=== PATIENT | female | born 1995 | race Hispanic/Latino ===

== ENCOUNTER 2017-01-07 12:34 | Emergency (ER) | payer OTHER ==
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
[2017-01-07] MEDS ORDERED: Adacel (T-DAP) 0.5 ML VIAL ONE (14:20)
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
[2017-01-07] MEDS ORDERED: HYDROcodone/Acetaminophen 5/325 mg Tablet ONE (15:09)
== END 2017-01-07 16:27 | disposition home or self-care (01) ==
LOC: ERS 12:34
DX: S76.012A Strain of muscle, fascia and tendon of left hip, initial encounter (principal); S20.211A Contusion of right front wall of thorax, initial encounter; S00.03XA Contusion of scalp, initial encounter; S70.312A Abrasion, left thigh, initial encounter; S70.311A Abrasion, right thigh, initial encounter; V89.2XXA Person injured in unspecified motor-vehicle accident, traffic, initial encounter
CPT/HCPCS: 70450; 72125; 72170; 90471; 90715

== ENCOUNTER 2017-07-03 11:14 | Inpatient (IN) | payer OTHER ==
[2017-07-03 14:26] LABS: #Monocytes 0.3 thou/uL (0.11-0.59); #Neutrophils 7.4 thou/uL (1.40-6.50); %Eosinophils 0.4 % (0.0-10.0); %Lymphocytes 11.9 % (21.0-51.0); %Monocytes 2.9 % (0.0-10.0); %Neutrophils 84.7 % (42.0-75.0); Hemoglobin 10.9 g/dL (12.0-16.0); Mean Corpuscular HGB CONC 33.4 g/dL (32.0-36.0); Mean Corpuscular Hemoglobin 28.7 pg (27.0-31.0); Mean Corpuscular Volume 85.8 fl (81.0-99.0); Platelet Count 314 thou/uL (130-400); Red Blood Cell (RBC) Count 3.81 mill/uL (4.20-5.40); White Blood Cell (WBC) Count 8.7 thou/uL (4.8-10.8)
[2017-07-03 14:35] LABS: BHCG - Serum Negative (NEGATIVE); Pregs Control Background? CLEAR/WHITE (CLR/WHITE); Pregs Control Bar Appear? YES (CONTROL BAR)
[2017-07-03 14:48] LABS: ALT (SGPT) Less than 7 U/L (8-55); AST (SGOT) 9 U/L (5-34); Albumin 4.1 g/dL (3.5-5.0); Alkaline Phosphatase 87 U/L (40-150); Anion Gap 11 mmol/L (10-20); BUN (Urea Nitrogen) 11 mg/dL (7.0-18.7); Bilirubin, Total 0.5 mg/dL (0.2-1.2); CK (CPK) 35 U/L (29-168); CRP (Inflammatory) 5.63 mg/dL (= or < 0.5); Calc. Creatinine Clearance 0 mL/min (70-130); Calcium 9.4 mg/dL (7.8-10.44); Carbon Dioxide 24 mmol/L (22-29); Chloride 105 mmol/L (98-107); Estimated GFR-MDRD Greater than 90; Globulin 2.9 g/dL (2.4-3.5); Glucose 95 mg/dL (70-105); Potassium 3.8 mmol/L (3.5-5.1); Sodium 136 mmol/L (136-145)
[2017-07-03] MEDS ORDERED: diphenhydrAMINE 50 MG/ML VIAL ONE (15:25)
[2017-07-03] MEDS ORDERED: Ampicillin/Sulbactam 3 GM in Sodium Chloride 0.9% 100 ML IVPB SCH (15:45)
[2017-07-03] MEDS ORDERED: Ketorolac Tromethamine 30 MG/ML VIAL ONE (16:53)
[2017-07-03] MEDS ORDERED: Ondansetron PF 4 MG/2 ML Vial ONE (16:53)
[2017-07-03] MEDS ORDERED: PROPOFOL 200 MG/20 ML VIAL ONE (16:53)
[2017-07-03] MEDS ORDERED: Dexamethasone 20 MG/5 ML VIAL ONE (16:53)
[2017-07-03] MEDS ORDERED: Lidocaine 1% PF 5 ML VIAL ONE (16:53)
[2017-07-03] MEDS ORDERED: Midazolam HCl 2 mg/2 ml Vial ONE (19:54)
[2017-07-03] MEDS ORDERED: Bisacodyl 10 MG SUPP PR PRN (20:00)
[2017-07-03] MEDS ORDERED: Promethazine HCl 25 MG/ML VIAL IM PRN ×2 (20:00→21:12)
[2017-07-03] MEDS ORDERED: Acetaminophen 325 MG TAB PO PRN (20:00)
[2017-07-03] MEDS ORDERED: TETANUS AND DIPHTHERIA TOX/PF 0.5 ML DISP.SYRIN IM SCH (20:00)
[2017-07-03] MEDS ORDERED: HYDROcodone/Acetaminophen 10/325 mg Tablet PO PRN (20:00)
[2017-07-03] MEDS ORDERED: Ondansetron PF 4 MG/2 ML Vial IV PRN (20:00)
[2017-07-03] MEDS ORDERED: traMADol HCl 50 MG TAB PO PRN (20:00)
[2017-07-03] MEDS ORDERED: Communication Order-Pharmacy FS SCH (20:00)
[2017-07-03] MEDS ORDERED: Ondansetron HCl/PF 4 MG/2 ML Vial IVP PRN (21:12)
[2017-07-03] MEDS ORDERED: Promethazine HCl 25 MG/ML VIAL SLOW IVP PRN (21:12)
[2017-07-03] MEDS: Sodium Chloride 0.9% 100 ML IV SCH ×2 (22:17→22:31)
[2017-07-03] MEDS: Ampicillin/Sulbactam 3 GM in Sodium Chloride 0.9% 100 ML IVPB SCH (22:35)
[2017-07-03 22:42] LABS: #Lymphocytes 0.8 thou/uL (1.20-3.40); #Monocytes 0.2 thou/uL (0.11-0.59); #Neutrophils 8.4 thou/uL (1.40-6.50); %Basophils 0.2 % (0.0-1.0); %Eosinophils 0.3 % (0.0-10.0); %Lymphocytes 8.3 % (21.0-51.0); %Monocytes 2.1 % (0.0-10.0); %Neutrophils 89.2 % (42.0-75.0); Hemoglobin 10.3 g/dL (12.0-16.0); Mean Corpuscular HGB CONC 34.6 g/dL (32.0-36.0); Mean Corpuscular Hemoglobin 29.4 pg (27.0-31.0); Mean Platelet Volume 6.8 fL (7.4-10.4); Platelet Count 281 thou/uL (130-400); RBC Distribution Width 11.9 % (11.5-14.5); Red Blood Cell (RBC) Count 3.52 mill/uL (4.20-5.40); White Blood Cell (WBC) Count 9.4 thou/uL (4.8-10.8)
[2017-07-03 22:50] VITALS: BMI 24.7
[2017-07-04] MEDS: Sodium Chloride 0.9% 1,000 ML IV SCH ×3 (00:10→19:27)
[2017-07-04] MEDS: Acetaminophen/Codeine 30-300mg Tablet PO PRN ×4 (03:57→23:59)
[2017-07-04 05:03] LABS: #Lymphocytes 0.6 thou/uL (1.20-3.40); #Monocytes 0.2 thou/uL (0.11-0.59); %Basophils 0.3 % (0.0-1.0); %Eosinophils 0.1 % (0.0-10.0); %Lymphocytes 6.8 % (21.0-51.0); %Monocytes 1.7 % (0.0-10.0); %Neutrophils 91.1 % (42.0-75.0); Hemoglobin 10.8 g/dL (12.0-16.0); Mean Corpuscular HGB CONC 34.5 g/dL (32.0-36.0); Mean Corpuscular Hemoglobin 29.2 pg (27.0-31.0); Mean Corpuscular Volume 84.7 fl (81.0-99.0); Mean Platelet Volume 7.1 fL (7.4-10.4); Platelet Count 320 thou/uL (130-400); RBC Distribution Width 11.8 % (11.5-14.5); Red Blood Cell (RBC) Count 3.72 mill/uL (4.20-5.40); White Blood Cell (WBC) Count 8.8 thou/uL (4.8-10.8)
[2017-07-04] MEDS: Ampicillin/Sulbactam 3 GM in Sodium Chloride 0.9% 100 ML IVPB SCH ×3 (05:48→21:00)
[2017-07-04] MEDS: Morphine 4 MG/ML VIAL SLOW IVP PRN ×2 (14:13→20:53)
[2017-07-05 03:58] VITALS: BP 95/55; TEMP 97.6
[2017-07-05] MEDS: Acetaminophen/Codeine 30-300mg Tablet PO PRN (04:04)
[2017-07-05] MEDS: Ampicillin/Sulbactam 3 GM in Sodium Chloride 0.9% 100 ML IVPB SCH (05:21)
[2017-07-05] MEDS: Sodium Chloride 0.9% 1,000 ML IV SCH (05:28)
--- NOTE | 2017-07-05 13:18 | DIS ---
DATE OF ADMISSION: 07/03/2017 DATE OF DISCHARGE: 07/05/2017 ADMISSION DIAGNOSES: 1. Infectious flexor tenosynovitis, left index finger. 2. Flexor tendon sheath abscess, left index finger. 3. Cat scratch/cat bite etiology for the infection. DISCHARGE DIAGNOSES: 1. Infectious flexor tenosynovitis, left index finger. 2. Flexor tendon sheath abscess, left index finger. 3. Cat scratch/cat bite etiology for the infection. ADMITTING PHYSICIAN: Harley Saenz M.D. CONSULTATIONS: None. ADMISSION HISTORY: The patient reported to the emergency room with approximately 4 hours after had h er own domestic cat bite and scratch incidents where she says it is the first with this animal. She had immediate swelling, pain, and then noticed some drainage from her hand early in the morning the n ext day, she reported to the hospital where she had all five [place] signs with gross purulence comin g from one of her bite wounds all over the index finger and middle finger. She had multiple scratche s on different parts of the right hand and left upper extremity, but they did not appear to be infect ed at this time. Because of the evidence of purulence under pressure in a closed space she went shelbie gently to the operating room the evening of admission, where she had an open flexor sheath irrigation , drainage, and radical flexor tenosynovectomy using 3 incisions. She had an indwelling catheter irr igation for approximately 18 hours after the procedure x3 and then the catheter was removed. By post op day #1, white blood cell count is decreased from 9.8 to 7000 and she had most of the erythema was gone. By postop day #2, erythema completely gone, she had 70 degrees of flexion in PIP and 35 degree s of the MP joint with full wrist flexion added to restore. She underwent wet to dry dressing change s and was prepared for discharge on 07/05/2017. DISCHARGE PLAN: The patient will be sent home on clindamycin, Toradol, and [place] for pain. 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 Her diet is regu lar.
--- NOTE | 2017-07-05 14:31 | OP ---
DATE OF PROCEDURE: 07/03/2017 PREOPERATIVE DIAGNOSIS: Infectious flexor tenosynovitis, left index finger secondary to cat bite/scr atch abscess. POSTOPERATIVE DIAGNOSIS: Infectious flexor tenosynovitis, left index finger secondary to cat bite/sc ratch abscess. FINDINGS: Gross purulence found that the entry point and in the tendon sheath between the A3 and A4 pulleys. PROCEDURES PERFORMED: 1. Open tendon sheath irrigation using catheters. 2. Flexor tenosynovectomy, flexor digitorum profundus, tendon superficialis. SPECIMEN SENT: Yes, cultures of both the fluid and the tenosynovium from this left index finger. TOURNIQUET TIME: 24 minutes. ESTIMATED BLOOD LOSS: Less than or equal to 10 mL. INDICATIONS: The patient had a cat bite and scratch episode approximately 24 hours of this, presente d to the emergency room with all five Kanavel signs. DESCRIPTION OF PROCEDURE: After successful general LMA technique, the limb was prepped and draped. We gave the patient a total of 10 mL 0.5% Marcaine at the end of procedure. Then, after a time out w as done, we inflated the tourniquet after limb exsanguination to 250 mmHg pressure. I then made a Br uner-type incision including two bite pryor over the palmar aspect of the middle phalanx across the P IP joint, made an incision over the opposite radial side of the distal phalangeal joint and then made an incision approximately 15 mm beginning at the A1 daren going proximally. At all the 3 sites, th ere was mucopurulent including some drainage from the bite itself. All were debrided using the follo wing technique: A. [place] blade, tenotomy scissors and Adsons as instruments. B. Excisional technique. C. Down to including tendon sheath and subcutaneous fat, did not enter joint. D. We found gross purulence and necrosis. We then performed a radical flexor tenosynovectomy at all to open site because the flexor tendon ray th itself with occasional mucopurulent material, which is probably the reason why there was no glide of motion. Once this was done, flexor digitorum profundus, superficialis, then began a series of irrigation with an Angiocath. First beginning at the A1 daren distally with fluid escaped in bet ween A2 and A3 daren and between A2 and A3 daren, we placed a Pollack type catheter and irrigated f rom here distally, coming out of the distal wound distal to the A4 daren. With every first irrigati on from the A4 to the level of the A2 and then from A2-A3 interval of A1. Total 250 mL was placed th rough the tendon sheath. Briefly, the tourniquet, left 16-gauge Angiocath distally and secured it with 4-0 nylon and we were a ble to irrigate the sheath and this would be used on floor irrigation. The incision was packed wet t o dry, normal saline soaked sterile 4 x 4s, bulky dressing was applied and the patient left the opera ting room. It must be noted that after irrigation, the patient had a added to almost the same as that of the long finger web, before the procedure began, it was completely straight with her anest hetized. There was excellent capillary refill in 1 second. The finger was pink.
[2017-07-10 11:21] LABS: Fungus Stain Final report (.)
[2017-07-10 11:21] LABS: Fungus Stain Final report (.)
[2017-08-07 13:20] LABS: Fungus Culture Final report (.)
[2017-08-07 13:20] LABS: Fungus Culture Final report (.)
--- NOTE | 2017-08-11 22:23 | EKG ---
Test Reason : PRE OP Blood Pressure : / mmHG Vent. Rate : 098 BPM Atrial Rate : 098 BPM P-R Int : 136 ms QRS Dur : 070 ms QT Int : 346 ms P-R-T Axes : 056 084 064 degrees QTc Int : 441 ms Normal sinus rhythm Normal ECG Confirmed by BETTY WEEMS D.O. ([id number]), online content editor ILEANA WRIGHT ([id number]) on 08/11/2017 10:22:30 PM Referred By: Confirmed By:BETTY WEEMS D.O.
== END 2017-07-05 07:11 | disposition home or self-care (01) | DRG 514 ==
LOC: ERS 11:14 → SURG B 20:00
PROVIDERS: ADMIT Orthopaedic Surgery Hand Surgery; ATTEND Orthopaedic Surgery Hand Surgery
PROC: 0H9GXZZ Drainage of Left Hand Skin, External Approach (ICD-10-PCS; principal; 2017-07-03)
PROC: 0LB80ZZ Excision of Left Hand Tendon, Open Approach (ICD-10-PCS; 2017-07-03)
DX: M65.142 Other infective (teno)synovitis, left hand (principal); M65.042 Abscess of tendon sheath, left hand; W55.03XA Scratched by cat, initial encounter; Y92.9 Unspecified place or not applicable
CPT/HCPCS: 36415; 80053; 82550; 83605; 84703; 85025; 85652; 86140; 87070; 87077; 87102; 87116; 87205; 87206; 93005; 96365; 96366; 96375; C1758; J0295; J1100; J1200; J1885; J2001; J2250; J2270; J2405; J2704; J3370; J7050

== ENCOUNTER → 2017-07-10 | Day surgery (SDC) | payer OTHER ==
[2017-07-09 15:12] VITALS: BMI 24.7
[~2017-07-10] MED LIST: Bacitracin Zinc Ointment 30 gm TUBE ONE; Bupivacaine PF 0.5% 30 ML VIAL ONE; Clindamycin/D5W 600 mg/50 ml Premix Bag ONE; Dexamethasone 20 MG/5 ML VIAL ONE; Fentanyl 100 MCG/2 ML VIAL ONE; Ketorolac Tromethamine 30 MG/ML VIAL ONE; Lidocaine 1% PF 5 ML VIAL ONE; Metoclopramide HCl 10 MG/2 ML VIAL ONE; Ondansetron HCl/PF 4 MG/2 ML Vial ONE; PHENYLEPHRINE-NS 100 MCG/ML 10 ML SYRINGE ONE; PROPOFOL 200 MG/20 ML VIAL ONE
--- NOTE | 2017-07-10 19:12 | OP ---
DATE OF PROCEDURE: 07/10/2017 PREOPERATIVE DIAGNOSES: Left palm and index finger incisions, open wounds 7 cm after previous flexor tendon sheath open irrigation, debridement, and tenosynovectomy. POSTOPERATIVE DIAGNOSES: Left palm and index finger incisions, open wounds 7 cm after previous flexo r tendon sheath open irrigation, debridement, and tenosynovectomy . PROCEDURES PERFORMED: 1. Debridement of wound. A. Use of curet, tenotomy scissors, and Harrison blade. 2. Excisional technique. B. Final fibrinous material without hematoma or infection. 3. There was no necrosis, but the depth of wound went down and involved the flexor tendon sheath the refore included fat, subcutaneous tissue, and skin epidermis. It was excisional technique. 4. Closure of the wound 7 cm.. INDICATIONS: Staged wound management after previous infectious tenosynovitis, open debridement and t enosynovectomy of approximately 7 days ago. DESCRIPTION OF PROCEDURE: After successful anesthesia by [place] anesthesia, the patient prepped an d draped. A PLASTERER APPRENTICE gave general LMA technique. We injected with a total of 12 mL 0.5% Marcaine block in the metacarpophalangeal joint level and then began to open the wounds and debrided the edges using instrumentation listed above and sparing all d igital nerve areas. Once we had done this, the patient then had the irrigation complete. The wound closed with an all 7 cm wound closed with interrupted 4-0 nylon in simple interrupted pattern and bul ky dressing was applied with bacitracin, Adaptic, 4 x 4s, Kerlix, and an Cory wrap.
== END ==
LOC: SDC 08:43
PROVIDERS: ATTEND Orthopaedic Surgery Hand Surgery
PROC: 0JQK0ZZ Repair Left Hand Subcutaneous Tissue and Fascia, Open Approach (ICD-10-PCS; principal; 2017-07-10)
PROC: 0JBK0ZZ Excision of Left Hand Subcutaneous Tissue and Fascia, Open Approach (ICD-10-PCS; principal; 2017-07-10)
DX: S61.201A Unspecified open wound of left index finger without damage to nail, initial encounter (principal); Z79.899 Other long term (current) drug therapy; Z98.890 Other specified postprocedural states
CPT/HCPCS: 96374; J0131; J1100; J1885; J2001; J2405; J2704; J2765; J3010; J3490; S0020